=== PATIENT | male | born 1980 | race Caucasian/White ===

== ENCOUNTER 2020-10-22 12:38 | Emergency (ER) | payer MEDICAID, SELFPAY ==
[~2020-10-22] VITALS: Ht 182.9 cm; Wt 77.1 kg
[2020-10-22 12:46] VITALS: BP_SYST 143
[2020-10-22 13:15] VITALS: BP_SYST 143
[2020-10-23] MEDS ORDERED: AMOX-426 PO (08:53)
[2020-10-23] MEDS ORDERED: ALBMDI INH (08:53)
== END 2020-10-22 13:15 | disposition home or self-care (01) ==
LOC: SED 12:38
DX: R51.9 Headache, unspecified (principal); R53.1 Weakness; Z20.822 Contact with and (suspected) exposure to COVID-19
CPT/HCPCS: 99283; C9803; U0003

== ENCOUNTER 2020-10-23 08:35 | Emergency (ER) | payer MEDICAID, SELFPAY ==
[~2020-10-23] VITALS: Ht 182.9 cm; Wt 77.1 kg
[2020-10-23] MEDS ORDERED: ALBMDI INH (08:53)
[2020-10-23] MEDS ORDERED: AMOX-426 PO (08:53)
[2020-10-23 08:54] VITALS: BP_SYST 145
[2020-10-23 09:20] VITALS: BP_SYST 141
== END 2020-10-23 09:20 | disposition home or self-care (01) ==
LOC: SED 08:35
DX: R05 Cough (principal); R11.2 Nausea with vomiting, unspecified; Z20.822 Contact with and (suspected) exposure to COVID-19; Z79.899 Other long term (current) drug therapy
CPT/HCPCS: 99283